=== PATIENT | male | born 1970 | race Caucasian/White ===

== ENCOUNTER 2022-05-19 13:21 | Inpatient (IN) | payer OTHER, SELFPAY ==
--- NOTE | ~2022-05-19 | CT_ITS ---
EXAMINATION: CT ANGIOGRAM OF THE CHEST WITH AND WITHOUT CONTRAST (CT PULMONARY ANGIOGRAM FOR PE) CLINICAL INFORMATION: Reason for Exam pain COMPARISON: None available. TECHNIQUE: Prior to contrast administration, noncontrast localization images were obtained. Subsequently, multidetector volumetric imaging was performed from the thoracic inlet to below the diaphragms following the administration of 80 mL Omnipaque 350 intravenous contrast. No contrast reaction reported Sagittal, coronal, and MIP oblique sagittal reformatted images were obtained on the CT workstation, uploaded to PACS, and reviewed. This CT examination was performed using dose optimization techniques as appropriate, variously including the following: *Automated exposure control *Adjustment of mA and/or kV according to patient size (this includes techniques or standardized protocols for targeted exams where dose is matched to indication/reason for exam; i.e. extremities or head) *Use of iterative reconstruction technique Total exam dose-length product 381 mGy-cm FINDINGS: QUALITY OF STUDY/CONTRAST BOLUS: Satisfactory. PULMONARY ARTERIES: No central or segmental pulmonary emboli. THORACIC AORTA: No aneurysm or dissection. LUNG: The lungs are well-expanded with bilateral superior and posterior segment platelike atelectasis. No acute consolidation. There is 3 and pulmonary nodule left upper lobe image 29/6. No additional appearing nodules visualized. PLEURA: There is no pleural effusion, pleural thickening or pneumothorax. MEDIASTINUM: Heart size is normal. There is no pericardial effusion. No hilar or mediastinal adenopathy seen. No evidence of septal bowing or right heart strain. CORONARY ARTERY CALCIFICATION: Mild coronary artery calcifications are present. CHEST WALL/AXILLA: There are small shotty bilateral axillary lymph nodes. The chest wall is unremarkable. OSSEOUS STRUCTURES: No acute or suspicious osseous abnormality. UPPER ABDOMEN: Visualized liver, spleen, pancreas and bilateral adrenal glands are unremarkable. No reflux of contrast into the hepatic veins to suggest elevated right heart pressures. CT/CT angio chest PE protocol IMPRESSION: 1. No evidence of PE. 2. No evidence of aortic dissection or aneurysm. 3. Bilateral lower lobe platelike atelectasis VTE: negative
--- NOTE | ~2022-05-19 | XR_ITS ---
EXAMINATION: XR CHEST CLINICAL INFORMATION: Chest pain COMPARISON: None available. TECHNIQUE: Portable upright AP x2 views of the chest was obtained. FINDINGS: There is no pneumothorax or pneumomediastinum or free air beneath the diaphragms. The heart is normal in size. The vascularity is normal. There is no pleural reaction or effusion. The costophrenic sulci are clear. There is no airspace consolidation or groundglass opacity. Fine linear scar is suggested right medial hemithorax. The hilar and mediastinal contours and visualized bony structures are unremarkable. XR/XR chest 1V IMPRESSION: Unremarkable examination.
--- NOTE | 2022-05-19 13:23 | ECG_ITS ---
Test Reason : Chest Pain Blood Pressure : / mmHG Vent. Rate : 067 BPM Atrial Rate : 067 BPM P-R Int : 174 ms QRS Dur : 100 ms QT Int : 388 ms P-R-T Axes : 063 032 029 degrees QTc Int : 409 ms Normal sinus rhythm Possible Left atrial enlargement Incomplete right bundle branch block Borderline ECG When compared with ECG of 19-MAY-2022 13:23, ST no longer elevated in Anterior leads T wave amplitude has decreased in Anterior leads Referred By: Drew Jerome Electronically Signed By:Roverto Cee
--- NOTE | 2022-05-19 13:30 | ED_ITS ---
HPI - Chest Pain General Chief Complaint: Chest Pain <JANNETTE Dove - Last Filed: 05/19/22 13:33> Stated Complaint: Chest tightness/L arm numbness <JANNETTE Dove - Last Filed: 05/19/22 13:33> Time Seen by Provider: 05/19/22 16:26 <JANNETTE Dove - Last Filed: 05/19/22 13:33> Source: patient and RN notes reviewed <Drew Jerome - Last Filed: 05/19/22 19:17> Mode of arrival: ambulatory <Drew Jerome - Last Filed: 05/19/22 19:17> Limitations: no limitations <Drew Jerome - Last Filed: 05/19/22 19:17> History of Present Illness HPI narrative: 51-year-old male past medical history significant for PE not currently anticoagulated presents for evaluation of chest pain. Patient reports that he had chest pain across his entire upper chest that start ed about 15 minutes after eating. This was approximately 3 hours ago. His pain radiated to both of his arms and under arms. He also complains of some tingling in both of his arms The patient also does endorse some pain between his shoulder blades that he feels is related Currently his pain is a 6/10 He denies any shortness of breath, cough, abdominal pain, nausea, vomiting He has reports a history of esophageal strictures Patient reports that his previous PE was over 2 years ago and was felt to be related to COVID. <Drew Jerome - Last Filed: 05/19/22 19:17> Related Data Home Medications: Home Medications Medication Instructions Recorded Confirmed No Known Home Meds 05/19/22 05/19/22 <JANNETTE Dove - Last Filed: 05/19/22 13:33> Allergies/Adverse Reactions: Allergies Allergy/AdvReac Type Severity Reaction Status Date / Time No Known Allergies Allergy Verified 05/19/22 13:31 <JANNETTE Dove - Last Filed: 05/19/22 13:33> Review of Systems Constitutional: Constitutional: Reports as per HPI, Denies chills, Denies fatigue, Denies fever(s) and Denies headache(s) <Drew Jerome - Last Filed: 05/19/22 19:17> ENT: Denies headache(s) <Drew Jerome - Last Filed: 05/19/22 19:17> Cardiovascular: Cardiovascular: Reports chest pain, Reports lightheadedness and Denies dyspnea <Drew Jerome - Last Filed: 05/19/22 19:17> Respiratory: Respiratory: Denies cough and Denies dyspnea <Drew Jerome - Last Filed: 05/19/22 19:17> Gastrointestinal: Gastrointestinal: Denies abdominal pain, Denies constipation and Denies vomiting <Drew Menesesy - Last Filed: 05/19/22 19:17> Genitourinary: Genitourinary: Denies difficulty urinating and Denies dysuria <Drew Jerome - Last Filed: 05/19/22 19:17> Neurologic: Denies headache(s) and Denies focal weakness <Drew Jerome - Last Filed: 05/19/22 19:17> Endocrine: Endocrine: Denies fatigue <Drew Jerome - Last Filed: 05/19/22 19:17> [facility] Social History Social History: Social History Alcohol intake: current Alcohol intake frequency: holidays/special occasions only Smoked in Last 30 Days: No Use of substances other than those prescribed or required for medical reasons: No Advance Directives: No Advance Directives Information Provided: Yes <JANNETTE Dove - Last Filed: 05/19/22 13:33> Physical Exam Vital Signs: Vital Signs: Last Vital Signs Temp 98.4 F 05/19/22 18:15 Pulse 76 05/19/22 18:15 Resp 20 05/19/22 18:15 BP 137/82 05/19/22 18:15 Pulse Ox 100 05/19/22 18:15 O2 Del Method 05/19/22 18:15 BMI result Body Mass Index 29.9 <JANNETTE Dove - Last Filed: 05/19/22 13:33> Vital Signs: Last Vital Signs Temp 98.4 F 05/19/22 18:15 Pulse 76 05/19/22 18:15 Resp 20 05/19/22 18:15 BP 137/82 05/19/22 18:15 Pulse Ox 100 05/19/22 18:15 O2 Del Method 05/19/22 18:15 BMI result Body Mass Index 29.9 < - Last Filed: 05/19/22 19:17> Const: General: healthy appearing, comfortable, no acute distress, alert and awake < Last Filed: 05/19/22 19:17> Nutritional Appearance: well nourished < - Last Filed: 05/19/22 19:17> Orientation/consciousness: patient oriented x3 < - Last Filed: 05/19/22 19:17> HEENT: Head: Yes normocephalic and Yes atraumatic < - Last Filed: 05/19/22 19:17> Throat: Yes posterior oropharynx normal < - Last Filed: 05/19/22 19:17> Eyes: Eyelids: Yes eyelids normal < - Last Filed: 05/19/22 19:17> Conjunctivae: conjunctivae normal < Last Filed: 05/19/22 19:17> Sclerae: sclerae normal < - Last Filed: 05/19/22 19:17> Corneas: corneas normal < - Last Filed: 05/19/22 19:17> Pupils: Equal, round and reactive pupils present < Last Fi led: 05/19/22 19:17> EOM: EOMs intact bilaterally < - Last Filed: 05/19/22 19:17> Neck: Neck: Yes full ROM < Last Filed: 05/19/22 19:17> Chest: Chest palpation & inspection: normal inspection of the chest < - Last Filed: 05/19/22 19:17> Resp: Effort & Inspection: normal respiratory effort, able to speak in complete sentences, no audible wheezes and not labored < - Last Filed: 05/19/22 19:17> Auscultation: clear to auscultation bilaterally < - Last Filed: 05/19/22 19:17> Cardio: Rate: regular rate <Drew O Last Filed: 05/19/22 19:17> Rhythm: regular rhythm <Drew O Last Filed: 05/19/22 19:17> Peripheral pulses: radial pulses present (2+ and equal) <Drew OReno - L ast Filed: 05/19/22 19:17> GI: Inspection: No distended <Drew O Last Filed: 05/19/22 19:17> Palpation (GI): Soft to palpation, not firm, nontender, no guarding and not rigid <Drew O - Last Filed: 05/19/22 19:17> Auscultation: normoactive bowel sounds <Drew O Last Filed: 05/19/22 19:17> Back/Spine/Pelvis: Thoracic/Lumbar Spine: thoracic and lumbar spine normal to inspection <Drew O Last Filed: 05/19/22 19:17> Skin: General skin exam: no rashes or lesions noted and elasticity normal <Drew O Last Filed: 05/19/22 19:17> Neuro: General: patient oriented x3 <Drew O Last Filed: 05/19/22 19:17> Cranial nerves: Yes CN's II-XII intact bilaterally, Yes Equal, round and reactive pupils present and Yes Bilaterally intact EOM present <Drew O - Last Filed: 05/19/22 19:17> Cognition (Neuro): normal cognition <Drew O Last Filed: 05/19/22 19:17> Extrem: Other: Moving all extremities well without any obvious deformities. No peripheral edema <Drew O Last Filed: 05/19/22 19:17> Course Course Course Narrative: RME--51yo M w/no sig PMHx c/o chest tightness and assoc bilateral UE tingling s/p eating lunch [employer]. Lungs CTA, nontoxic appearing EKG, Labs, CXR, COVID ordered <JANNETTE Dove - Last Filed: 05/19/22 13:33> Reevaluation(s) Reevaluation #1: Patient's initial troponin was 7.3 and does troponin was 52.1. The patient's chest pain resolved after receiving aspirin. I did repeat an EKG which shows subtle ST elevations or previously present in V2 through V4 are now resolved. I does show incomplete right bundle-branch block. CTA is still pending though I feel this is more likely a cardiac event. We will discuss with Cardiology <Drew Jerome - Last Filed: 05/19/22 19:17> Time: 18:19 <Drew Jerome - Last Filed: 05/19/22 19:17> Medications Administered Discontinued Medications Generic Name Dose Route Start Last Admin Trade Name Freq PRN Reason Stop Dose Admin Aspirin 325 mg 05/19/22 16:43 05/19/22 17:08 Aspirin 325 Mg Tablet PO 05/19/22 16:44 325 mg ONCE ONE Administration Iohexol 100 ml 05/19/22 17:51 05/19/22 17:51 Iohexol 350 Mg/Ml 100 Ml Infus..Btl IV 05/19/22 17:52 65 ml ONCE ONE Administration <JANNETTE Dove - Last Filed: 05/19/22 13:33> Medications Administered Discontinued Medications Generic Name Dose Route Start Last Admin Trade Name Freq PRN Reason Stop Dose Admin Aspirin 325 mg 05/19/22 16:43 05/19/22 17:08 Aspirin 325 Mg Tablet PO 05/19/22 16:44 325 mg ONCE ONE Administration Iohexol 100 ml 05/19/22 17:51 05/19/22 17:51 Iohexol 350 Mg/Ml 100 Ml Infus..Btl IV 05/19/22 17:52 65 ml ONCE ONE Administration <Drew Jerome - Last Filed: 05/19/22 19:17> Medical Decision Making Medical Decision Making MDM Narrative: 51-year-old male presenting for evaluation of chest pain and tingling both his arms that started about 50 minutes after eating lunch. He reports history of PE and is not currently anticoagulated. Was mildly hypertensive on arrival to 156/94. This improved to 1 without any intervention. Initial EKG is normal sinus without ischemia. Initial labs are unremarkable including tro ponin. We will get a a 3 hour delta troponin and a CTA of the chest to her for the of the patient's history. Patient medicated with aspirin this time. Have a lower suspicion for ACS see patient has no risk factors for this. His symptoms started after eating his EKG is nonischemic. Given his history of esophageal stricture, this is also in the differential. <Drew Jerome - Last Filed: 05/19/22 19:17> Differential Diagnosis Chest pain ACS PE Aortic dissection less likely Esophageal stricture GERD Peptic ulcer disease <Drew Jerome - Last Filed: 05/19/22 19:17> Lab Data MDM Lab Attestation statement: I reviewed the patient's lab results. <Drew Jerome - Last Filed: 05/04 08/26 19:17> No significant lab abnormalities <Drew Jerome - Last Filed: 05/19/22 19:17> Result Diagrams: 05/19/22 14:25 05/19/22 14:25 <JANNETTE Dove - Last Filed: 05/19/22 13:33> Labs: Lab Results 05/19/22 05/19/22 05/19/22 Range/Units 14:25 14:25 14:25 WBC 7.0 (4.8-10.8) X10*3/uL RBC 4.94 (4.60-5.80) X10*6/uL Hgb 15.8 (14.0-18.0) g/dl Hct 46.1 (42.0-52.0) % MCV 93.3 (80.0-98.0) fL MCH 32.0 (27.0-33.0) pg MCHC 34.3 (31.0-36.0) g/dl RDW 12.5 (11.0-16.0) % Plt Count 201 (160-400) X10*3/uL MPV 8.8 L (9.4-12.4) fL Immature Gran % (Auto) 0.3 (0.0-0.4) % Neut % (Auto) 64.7 (45-73) % Lymph % (Auto) 25.1 (20-40) % [place] % (Auto) 7.1 (2-11) % Eos % (Auto) 2.4 (0-4) % Baso % (Auto) 0.4 (0-2) % Lymph # (Auto) 1.8 (1.2-4.9) X10*3/uL [place] # (Auto) 0.5 (0.1-1.2) X10*3/uL Eos # (Auto) 0.2 (0.0-0.4) X10*3/uL Baso # (Auto) 0.0 (0.0-0.2) X10*3/uL Abs Immat Gran (auto) 0.02 (0.00-0.03) X10*3/uL Absolute Neuts (auto) 4.5 (2.0-8.3) x10*3/uL Absolute Nucleated RBC 0.000 (0.0-0.012) X10*3/uL Nucleated RBC % (auto) 0.0 (0.0-0.2) /100WBC PT 12.0 (10.0-13.1) SEC INR 1.0 (0.9-1.1) Sodium 137 (135-145) mmol/L Potassium 4.3 (3.3-5.1) mmol/L Chloride 102 (96-108) mmol/L Carbon Dioxide 29 (22-29) mmol/L Anion Gap 10 L (12-20) BUN 14 (9-16) mg/dL Creatinine 1.06 (0.5-1.4) mg/dL Estim Creat Clear Calc 107.4 Estimated GFR > 60 Random Glucose 190 H (60-115) mg/dL Calcium 8.8 (8.4-10.2) mg/dL Magnesium 2.0 (1.6-2.6) mg/dL Total Bilirubin 0.5 (0.0-1.0) mg/dL Direct Bilirubin < 0.2 (0.0-0.5) mg/dL AST 16 (5-37) U/L ALT 18 (0-40) U/L Alkaline Phosphatase 75 (39-117) U/L Troponin I High Sens (<3.5-35.0) ng/L Total Protein 6.4 L (6.5-8.0) g/dL Albumin 4.0 (3.5-5.0) g/dL COVID-19 (ONELIA) (Negative) COVID-19 Clin Com 05/19/22 05/19/22 05/19/22 Range/Units 14:25 14:25 17:14 WBC (4.8-10.8) X10*3/uL RBC (4.60-5.80) X10*6/uL Hgb (14.0-18.0) g/dl Hct (42.0-52.0) % MCV (80.0-98.0) fL MCH (27.0-33.0) pg MCHC (31.0-36.0) g/dl RDW (11.0-16.0) % Plt Count (160-400) X10*3/uL MPV (9.4-12.4) fL Immature Gran % (Auto) (0.0-0.4) % Neut % (Auto) (45-73) % Lymph % (Auto) (20-40) % [place] % (Auto) (2-11) % Eos % (Auto) (0-4) % Baso % (Auto) (0-2) % Lymph # (Auto) (1.2-4.9) X10*3/uL [place] # (Auto) (0.1-1.2) X10*3/uL Eos # (Auto) (0.0-0.4) X10*3/uL Baso # (Auto) (0.0-0.2) X10*3/uL Abs Immat Gran (auto) (0.00-0.03) X10*3/uL Absolute Neuts (auto) (2.0-8.3) x10*3/uL Absolute Nucleated RBC (0.0-0.012) X10*3/uL Nucleated RBC % (auto) (0.0-0.2) /100WBC PT (10.0-13.1) SEC INR (0.9-1.1) Sodium (135-145) mmol/L Potassium (3.3-5.1) mmol/L Chloride (96-108) mmol/L Carbon Dioxide (22-29) mmol/L Anion Gap (12-20) BUN (9-16) mg/dL Creatinine (0.5-1.4) mg/dL Estim Creat Clear Calc Estimated GFR Random Glucose (60-115) mg/dL Calcium (8.4-10.2) mg/dL Magnesium (1.6-2.6) mg/dL Total Bilirubin (0.0-1.0) mg/dL Direct Bilirubin (0.0-0.5) mg/dL AST (5-37) U/L ALT (0-40) U/L Alkaline Phosphatase (39-117) U/L Troponin I High Sens 7.3 52.1 H D (<3.5-35.0) ng/L Total Protein (6.5-8.0) g/dL Albumin (3.5-5.0) g/dL COVID-19 (ONELIA) Negative (Negative) COVID-19 Clin Com See Note <JANNETTE Dove - Last Filed: 05/19/22 13:33> Lab Results 05/19/22 05/19/22 05/19/22 Range/Units 14:25 14:25 14:25 WBC 7.0 (4.8-10.8) X10*3/uL RBC 4.94 (4.60-5.80) X10*6/uL Hgb 15.8 (14.0-18.0) g/dl Hct 46.1 (42.0-52.0) % MCV 93.3 (80.0-98.0) fL MCH 32.0 (27.0-33.0) pg MCHC 34.3 (31.0-36.0) g/dl RDW 12.5 (11.0-16.0) % Plt Count 201 (160-400) X10*3/uL MPV 8.8 L (9.4-12.4) fL Immature Gran % (Auto) 0.3 (0.0-0.4) % Neut % (Auto) 64.7 (45-73) % Lymph % (Auto) 25.1 (20-40) % [place] % (Auto) 7.1 (2-11) % Eos % (Auto) 2.4 (0-4) % Baso % (Auto) 0.4 (0-2) % Lymph # (Auto) 1.8 (1.2-4.9) X10*3/uL [place] # (Auto) 0.5 (0.1-1.2) X10*3/uL Eos # (Auto) 0.2 (0.0-0.4) X10*3/uL Baso # (Auto) 0.0 (0.0-0.2) X10*3/uL Abs Immat Gran (auto) 0.02 (0.00-0.03) X10*3/uL Absolute Neuts (auto) 4.5 (2.0-8.3) x10*3/uL Absolute Nucleated RBC 0.000 (0.0-0.012) X10*3/uL Nucleated RBC % (auto) 0.0 (0.0-0.2) /100WBC PT 12.0 (10.0-13.1) SEC INR 1.0 (0.9-1.1) Sodium 137 (135-145) mmol/L Potassium 4.3 (3.3-5.1) mmol/L Chloride 102 (96-108) mmol/L Carbon Dioxide 29 (22-29) mmol/L Anion Gap 10 L (12-20) BUN 14 (9-16) mg/dL Creatinine 1.06 (0.5-1.4) mg/dL Estim Creat Clear Calc 107.4 Estimated GFR > 60 Random Glucose 190 H (60-115) mg/dL Calcium 8.8 (8.4-10.2) mg/dL Magnesium 2.0 (1.6-2.6) mg/dL Total Bilirubin 0.5 (0.0-1.0) mg/dL Direct Bilirubin < 0.2 (0.0-0.5) mg/dL AST 16 (5-37) U/L ALT 18 (0-40) U/L Alkaline Phosphatase 75 (39-117) U/L Troponin I High Sens (<3.5-35.0) ng/L Total Protein 6.4 L (6.5-8.0) g/dL Albumin 4.0 (3.5-5.0) g/dL COVID-19 (ONELIA) (Negative) COVID-19 Clin Com 05/19/22 05/19/22 05/19/22 Range/Units 14:25 14:25 17:14 WBC (4.8-10.8) X10*3/uL RBC (4.60-5.80) X10*6/uL Hgb (14.0-18.0) g/dl Hct (42.0-52.0) % MCV (80.0-98.0) fL MCH (27.0-33.0) pg MCHC (31.0-36.0) g/dl RDW (11.0-16.0) % Plt Count (160-400) X10*3/uL MPV (9.4-12.4) fL Immature Gran % (Auto) (0.0-0.4) % Neut % (Auto) (45-73) % Lymph % (Auto) (20-40) % [place] % (Auto) (2-11) % Eos % (Auto) (0-4) % Baso % (Auto) (0-2) % Lymph # (Auto) (1.2-4.9) X10*3/uL [place] # (Auto) (0.1-1.2) X10*3/uL Eos # (Auto) (0.0-0.4) X10*3/uL Baso # (Auto) (0.0-0.2) X10*3/uL Abs Immat Gran (auto) (0.00-0.03) X10*3/uL Absolute Neuts (auto) (2.0-8.3) x10*3/uL Absolute Nucleated RBC (0.0-0.012) X10*3/uL Nucleated RBC % (auto) (0.0-0.2) /100WBC PT (10.0-13.1) SEC INR (0.9-1.1) Sodium (135-145) mmol/L Potassium (3.3-5.1) mmol/L Chloride (96-108) mmol/L Carbon Dioxide (22-29) mmol/L Anion Gap (12-20) BUN (9-16) mg/dL Creatinine (0.5-1.4) mg/dL Estim Creat Clear Calc Estimated GFR Random Glucose (60-115) mg/dL Calcium (8.4-10.2) mg/dL Magnesium (1.6-2.6) mg/dL Total Bilirubin (0.0-1.0) mg/dL Direct Bilirubin (0.0-0.5) mg/dL AST (5-37) U/L ALT (0-40) U/L Alkaline Phosphatase (39-117) U/L Troponin I High Sens 7.3 52.1 H D (<3.5-35.0) ng/L Total Protein (6.5-8.0) g/dL Albumin (3.5-5.0) g/dL COVID-19 (ONELIA) Negative (Negative) COVID-19 Clin Com See Note <Drew Jerome - Last Filed: 05/19/22 19:17> Independent Interpretation I performed an independent interpretation of an: EKG (Sinus rhythm with a rate of 60 beats per minute. Nonischemic EKG.) and Plain X-Ray (No acute intrathoracic pathology) <Drew Jerome - Last Filed: 05/19/22 19:17> Discharge Plan Discharge Clinical Impression: Chest pain <JANNETTE Dove - Last Filed: 05/19/22 13:33> Patient Disposition: Admitted As Inpatient <JANNETTE Dove - Last Filed: 05/19/22 13:33>
--- NOTE | 2022-05-19 13:31 | ECG_ITS ---
Test Reason : cp Blood Pressure : / mmHG Vent. Rate : 060 BPM Atrial Rate : 060 BPM P-R Int : 168 ms QRS Dur : 098 ms QT Int : 392 ms P-R-T Axes : 064 019 009 degrees QTc Int : 392 ms Normal sinus rhythm Prominent T waves - consider ischemia vs electrolyte imbalance. Abnormal ECG No previous ECGs available Referred By: Alma Puente Electronically Signed By:Roverto Cee
[2022-05-19 13:32] VITALS: BP 156/94; PULSE 62; RESP 19; TEMP 36.6; O2SAT 99; BMI 29.9
[2022-05-19 14:34] LABS: MANUAL DIFF FLAG NO
[2022-05-19 14:36] LABS: Basophils Percent Auto 0.4 % (0-2); Eosinophils Absolute Auto 0.2 X10*3/uL (0.0-0.4); Eosinophils Percent Auto 2.4 % (0-4); Hematocrit 46.1 % (42.0-52.0); Hemoglobin 15.8 g/dl (14.0-18.0); Imm Gran Abs Auto 0.02 X10*3/uL (0.00-0.03); Imm Gran Pct Auto 0.3 % (0.0-0.4); Lymphocytes Absolute Auto 1.8 X10*3/uL (1.2-4.9); Lymphocytes Percent Auto 25.1 % (20-40); Mean Corpuscular HGB Conc 34.3 g/dl (31.0-36.0); Mean Corpuscular Volume 93.3 fL (80.0-98.0); Mean Platelet Volume 8.8 fL (9.4-12.4); Monocytes Absolute Auto 0.5 X10*3/uL (0.1-1.2); Monocytes Percent Auto 7.1 % (2-11); Neutrophils Absolute Auto 4.5 x10*3/uL (2.0-8.3); Neutrophils Percent Auto 64.7 % (45-73); Platelet Count 201 X10*3/uL (160-400); Red Blood Count 4.94 X10*6/uL (4.60-5.80); Red Cell Distribution Width 12.5 % (11.0-16.0)
[2022-05-19 14:53] LABS: Alanine Aminotransferase 18 U/L (0-40); Alkaline Phosphatase 75 U/L (39-117); Anion Gap 10 (12-20); Aspartate Amino Transferase 16 U/L (5-37); Bilirubin Direct < 0.2 mg/dL (0.0-0.5); Bilirubin Total 0.5 mg/dL (0.0-1.0); Blood Urea Nitrogen 14 mg/dL (9-16); Calcium 8.8 mg/dL (8.4-10.2); Carbon Dioxide 29 mmol/L (22-29); Chloride 102 mmol/L (96-108); Creatinine Clr Calc Pharmacy 107.4; Estimated Glomerular Filt Rate > 60; Glucose Random 190 mg/dL (60-115); Potassium 4.3 mmol/L (3.3-5.1); Sodium 137 mmol/L (135-145); Total Protein 6.4 g/dL (6.5-8.0)
[2022-05-19 14:54] LABS: COVID-19 Test Negative (Negative); IDNOW Serial# 08D9AD1C
[2022-05-19 14:57] LABS: Troponin-I High Sensitivity 7.3 ng/L (<3.5-35.0)
[2022-05-19 15:49] VITALS: BP 130/78; PULSE 70; RESP 18; TEMP 36.8; O2SAT 99
[2022-05-19] MEDS: Aspirin 325 MG TABLET PO (17:08)
--- NOTE | 2022-05-19 17:22 | PC.NURSE ---
plan for cta, took po meds without issue. iv placed without issue, repeat trop sent.
[2022-05-19 17:42] LABS: Troponin-I High Sensitivity 52.1 ng/L (<3.5-35.0)
[2022-05-19] MEDS: iohexoL 350 MG/ML 100 ML INFUS..BTL IV (17:51)
[2022-05-19 18:15] VITALS: BP 137/82; PULSE 76; RESP 20; TEMP 36.9; O2SAT 100
--- NOTE | 2022-05-19 18:54 | PHA.MEDREC ---
Pharmacy Consult ? Medication Reconciliation Pharmacy has completed the medication reconciliation.
--- NOTE | 2022-05-19 19:20 | PM.IMHP ---
History of Present Illness Date of Service: 05/19/22 Chief Complaint: Chest Pain This is a 51-year-old male with no pertinent past medical history and not on prescription medications who presents to the emergency department for evaluation of chest discomfort. Patient states this afternoon, he had substernal chest discomfort with radiation to the both arms, constant and without any relieving factors. Does report chest discomfort which was worse with exertion that has been ongoing for the last 1 week but today it was constant. Had associated lightheadedness and tingling of both arms. No nausea, vomiting, sweating. No similar complaints in the past. Did have a history of PE due to COVID-19 infection but has been taken off of anticoagulation. No history of hypertension or diabetes. Patient denies fever, chills, palpitations, shortness of breath, abdominal pain, changes in urinary or bowel habits In the emergency department, troponin was found to be elevated and Cardiology was consulted who recommended admission and initiation of IV heparin Review of Systems Constitutional: Constitutional: Reports no additional constitutional complaints Cardiovascular: Cardiovascular: Reports chest pain Respiratory: Respiratory: Reports no additional respiratory complaints Gastrointestinal: Gastrointestinal: Reports no additional gastrointestinal complaints Genitourinary: Genitourinary: Reports no additional male genitourinary complaints [facility] Medical History Pulmonary emboli Pertinent family history: No family history of early CAD Social History Alcohol intake: current Alcohol intake frequency: holidays/special occasions only Smoked in Last 30 Days: No Use of substances other than those prescribed or required for medical reasons: No Advance Directives: No Advance Directives Information Provided: Yes Meds Allergies Allergy/AdvReac Type Severity Reaction Status Date / Time No Known Allergies Allergy Verified 05/19/22 13:31 Active Medications: Current Medications Heparin Sodium/Sodium Chloride (Heparin Sodium,Porcine/1/2ns) 25,000 unit in 250 mls @ 0 mls/hr IVCONT .Q0M MADHU; Protocol Pharmacy Consult (Consult Rx Perform Med Rec) 1 each MISCELLANE ONCE PRN PRN Reason: Consult order Pharmacy Consult (Consult Rx Perform Med Rec) 1 each MISCELLANE ONCE PRN PRN Reason: Consult order Home Medications Medication Instructions Recorded Confirmed Last Taken Type No Known Home Meds 03/16/23 03/16/23 Unknown History Physical Exam Vital Signs and Narrative: Vital Signs: Last Vital Signs Temp 98.4 F 05/19/22 18:15 Pulse 76 05/19/22 18:15 Resp 20 05/19/22 18:15 BP 137/82 05/19/22 18:15 Pulse Ox 100 05/19/22 18:15 O2 Del Method 05/19/22 18:15 BMI result Body Mass Index 29.9 Middle-aged male lying in bed in no distress Neck supple, no JVD Regular rate and rhythm, S1-S2 heard Regular breath sounds bilaterally, no wheezing or crackles appreciated Abdomen soft nontender, no guarding, no rigidity Patient is awake, alert and oriented to self, place, time and person ; no focal motor deficit Psych: Normal mood No pedal edema Results Labs 05/19/22 14:25 05/19/22 14:25 Labs: Laboratory Results - last 24 hr 05/19/22 05/19/22 05/19/22 14:25 14:25 14:25 MCV 93.3 MCH 32.0 MCHC 34.3 RDW 12.5 Plt Count 201 MPV 8.8 L Immature Gran % (Auto) 0.3 Neut % (Auto) 64.7 Lymph % (Auto) 25.1 [place] % (Auto) 7.1 Eos % (Auto) 2.4 Baso % (Auto) 0.4 Lymph # (Auto) 1.8 [place] # (Auto) 0.5 Eos # (Auto) 0.2 Baso # (Auto) 0.0 Abs Immat Gran (auto) 0.02 Absolute Neuts (auto) 4.5 Absolute Nucleated RBC 0.000 Nucleated RBC % (auto) 0.0 PT 12.0 INR 1.0 Anion Gap 10 L Estim Creat Clear Calc 107.4 Estimated GFR > 60 Random Glucose 190 H Calcium 8.8 Magnesium 2.0 Total Bilirubin 0.5 Direct Bilirubin < 0.2 AST 16 ALT 18 Alkaline Phosphatase 75 Troponin I High Sens Total Protein 6.4 L Albumin 4.0 COVID-19 (ONELIA) COVID-19 Clin Com 05/19/22 05/19/22 05/19/22 14:25 14:25 17:14 MCV MCH MCHC RDW Plt Count MPV Immature Gran % (Auto) Neut % (Auto) Lymph % (Auto) [place] % (Auto) Eos % (Auto) Baso % (Auto) Lymph # (Auto) [place] # (Auto) Eos # (Auto) Baso # (Auto) Abs Immat Gran (auto) Absolute Neuts (auto) Absolute Nucleated RBC Nucleated RBC % (auto) PT INR Anion Gap Estim Creat Clear Calc Estimated GFR Random Glucose Calcium Magnesium Total Bilirubin Direct Bilirubin AST ALT Alkaline Phosphatase Troponin I High Sens 7.3 52.1 H D Total Protein Albumin COVID-19 (ONELIA) Negative COVID-19 Clin Com See Note Imaging Radiologist's Impressions: Impressions Chest X-Ray 05/19/22 14:14 IMPRESSION: Unremarkable examination. Chest CTA 05/19/22 17:59 IMPRESSION: 1. No evidence of PE. 2. No evidence of aortic dissection or aneurysm. 3. Bilateral lower lobe platelike atelectasis VTE: negative Assessment and Plan (1) Chest pain: Status: Acute Plan This is a 51-year-old male with no pertinent past medical history and not on prescription medications who presents to the emergency department for evaluation of chest discomfort. #. NSTEMI: Patient given aspirin 325 mg and was initiated on IV heparin in the ER. Cardiology consulted from the ER, appreciate assistance. Also giving high-intensity statin and obtaining lipid panel. Obtaining echo #. Elevated blood glucose: Initiating Accu-Cheks with sliding scale insulin. Obtain A1c DVT prophylaxis: IV heparin Full code Cardiac diet. NPO after midnight Admit as inpatient and will require two night minimum hospital stay for IV heparin Time Spent With Patient Time: Total time managing care of this patient today ____ minutes. Quality Stroke Does the patient have a stroke diagnosis?: No VTE Prior VTE?: No VTE Risk Level:: Medical - moderate - high VTE Device Contraindication: Treatment Not Indicated VTE Drug Contraindication: N/A - Med Ordered
[2022-05-19 20:00] VITALS: BP 154/92; PULSE 62; RESP 20; TEMP 36.9; O2SAT 96
[2022-05-19 20:30] LABS: Cholesterol 214 mg/dL; HDL Cholesterol 44 mg/dL; LDL Cholesterol Calculated 158 mg/dl; Triglycerides 62 mg/dL
[2022-05-19] MEDS: Heparin Sodium,Porcine/1/2NS 25,000 UNIT/250 ML IV.SOLN 15.68 UNIT IVCONT (20:47)
[2022-05-19] MEDS: Heparin Sodium,Porcine 5,000 UNIT/ML VIAL 4000 UNIT IVPUSH (20:47)
[2022-05-19] MEDS: Atorvastatin Calcium 40 MG TABLET PO (20:50)
--- NOTE | 2022-05-19 21:03 | PC.NURSE ---
this rn medicated pt according to mar. initial ptt not performed. pt received bolus heparin 4000 units, per pharmacy pt okay to start heparin gtt with pt. heparin gtt started with second rn at bedside to cosign. repeat ptt ordered to be drawn @ 0248 per protocol.
[2022-05-19 21:22] LABS: Glucose, Whole Blood 99 mg/dL (60-115)
[2022-05-20] VITALS: BP 137/85; PULSE 62; RESP 18; TEMP 36.9; O2SAT 98
--- NOTE | 2022-05-20 | ECG_ITS ---
Test Reason : NSTEMI Blood Pressure : / mmHG Vent. Rate : 076 BPM Atrial Rate : 076 BPM P-R Int : 192 ms QRS Dur : 096 ms QT Int : 374 ms P-R-T Axes : 050 -05 037 degrees QTc Int : 420 ms Normal sinus rhythm Septal infarct , age undetermined Abnormal ECG When compared with ECG of 19-MAY-2022 17:55, Incomplete right bundle branch block is no longer Present Septal infarct is now Present Referred By: Dmitriy Espitia Electronically Signed By:Roverto Cee
[2022-05-20 02:59] LABS: Basophils Percent Auto 0.3 % (0-2); Eosinophils Absolute Auto 0.2 X10*3/uL (0.0-0.4); Eosinophils Percent Auto 1.8 % (0-4); Hematocrit 46.1 % (42.0-52.0); Hemoglobin 15.8 g/dl (14.0-18.0); Imm Gran Abs Auto 0.04 X10*3/uL (0.00-0.03); Imm Gran Pct Auto 0.4 % (0.0-0.4); Lymphocytes Absolute Auto 2.7 X10*3/uL (1.2-4.9); Lymphocytes Percent Auto 25.3 % (20-40); MANUAL DIFF FLAG NO; Mean Corpuscular HGB Conc 34.3 g/dl (31.0-36.0); Mean Corpuscular Volume 90.4 fL (80.0-98.0); Mean Platelet Volume 8.5 fL (9.4-12.4); Monocytes Absolute Auto 0.9 X10*3/uL (0.1-1.2); Neutrophils Absolute Auto 6.9 x10*3/uL (2.0-8.3); Neutrophils Percent Auto 64.2 % (45-73); Platelet Count 191 X10*3/uL (160-400); Red Cell Distribution Width 12.4 % (11.0-16.0); White Blood Count 10.7 X10*3/uL (4.8-10.8)
[2022-05-20 03:22] LABS: Anion Gap 12 (12-20); Blood Urea Nitrogen 10 mg/dL (9-16); Calcium 8.9 mg/dL (8.4-10.2); Carbon Dioxide 25 mmol/L (22-29); Chloride 106 mmol/L (96-108); Creatinine Clr Calc Pharmacy 125.4; Estimated Glomerular Filt Rate > 60; Glucose Random 107 mg/dL (60-115); Sodium 139 mmol/L (135-145)
[2022-05-20 03:29] LABS: PTT Heparin Drip 116.4 SEC (53-77.9)
[2022-05-20 03:32] VITALS: BP 133/76; PULSE 63; RESP 20; TEMP 36.8; O2SAT 98
[2022-05-20 04:53] LABS: PTT Heparin Drip 53.2 SEC (53-77.9)
[2022-05-20 05:07] LABS: Troponin-I High Sensitivity > 3600.0 ng/L (<3.5-35.0)
[2022-05-20 07:09] LABS: Estimated Average Glucose 103 mg/dL; Hemoglobin A1c % 5.2 %
[2022-05-20 07:17] LABS: Glucose, Whole Blood 98 mg/dL (60-115)
--- NOTE | 2022-05-20 07:45 | PM.CNCAR ---
History of Present Illness History of Present Illness Date of Service: 05/20/22 Requesting physician: Dmitriy Espitia Chief complaint: NSTEMI Narrative: pleasant 51-year-old gentleman was visiting from [place] and developed chest discomfort yesterday afternoon. He said he has been experiencing some pressure-like feeling in his chest over the last couple of weeks. This would happen when he would exert himself. Yesterday he remained discomfort past and bilateral shoulder discomfort. This lasted approximately 1-1/2 hour and he had some atypical dull aching chest since then. He is saying currently is feeling better. He is initial EKG showed hyperacute appearing T-waves in for a 2nd EKG there is no bleeding issues in the past. No known history in the past with any other risk factors. [facility] Past Medical History Medical History (Updated 05/20/22 @ 07:46 by Dmitriy Espitia MD) Pulmonary emboli Social History Social History Household Members: Spouse Housing: House Do you presently have visiting nurse or other home services: No Alcohol intake: current Alcohol intake frequency: holidays/special occasions only Patient Tobacco Use Status: Never used Tobacco Meds Allergies Allergy/AdvReac Type Severity Reaction Status Date / Time No Known Allergies Allergy Verified 05/19/22 13:31 Active Medications: Current Medications Acetaminophen (Acetaminophen 325 Mg Tablet) 650 mg PO Q6H PRN PRN Reason: Pain, Mild (Pain Scale 1-3) Glucose (Glucose Gel 15 Gm Gel..Gram.) 15 gm PO Q15M PRN; Protocol PRN Reason: per Hypoglycemia Standing Ord. Heparin Sodium (Porcine) (Heparin Sodium,Porcine 5,000 Unit/Ml Vial) 4,500 unit 40 unit/kg (4500 unit) IVPUSH PROTOCOL BOLUS PRN; Protocol PRN Reason: 40 unit/kg - Heparin Protocol Heparin Sodium (Porcine) (Heparin Sodium,Porcine 5,000 Unit/Ml Vial) 9,000 unit 80 unit/kg (9000 unit) IVPUSH PROTOCOL BOLUS PRN; Protocol PRN Reason: 80 unit/kg - Heparin Protocol Dextrose (D10) 250 mls @ 750 mls/hr IV Q15M PRN; Protocol PRN Reason: per Hypoglycemia Standing Ord. Heparin Sodium/Sodium Chloride (Heparin Sodium,Porcine/1/2ns) 25,000 unit in 250 mls @ 0 mls/hr IVCONT .Q0M [facility]; Protocol Last Titration: 05/20/22 06:07 Dose: 10 units/kg/hr, 11.2 mls/hr Insulin Human Lispro (Insulin Lispro 100 Unit/Ml 3 Ml Vial) 0 unit SUBCUT QIDACHS [facility]; Protocol Last Admin: 05/19/22 22:18 Dose: Not Given Melatonin (Melatonin 3 Mg Tablet) 6 mg PO BEDTIME PRN PRN Reason: Insomnia Nitroglycerin (Nitroglycerin 0.4 Mg Tab.Subl) 0.4 mg SUBLINGUAL Q5MX3 PRN PRN Reason: Chest Pain Ondansetron HCl (Ondansetron Hcl 4 Mg/2 Ml Vial) 4 mg IVPUSH Q8H PRN PRN Reason: Nausea and Vomiting Pharmacy Consult (Consult Rx Perform Med Rec) 1 each MISCELLANE ONCE PRN PRN Reason: Consult order Pharmacy Consult (Consult Rx Perform Med Rec) 1 each MISCELLANE ONCE PRN PRN Reason: Consult order Sodium Chloride (0.9 % Sodium Chloride Flush 3 Ml Syringe) 3 ml IVFLUSH QSHIFT [facility] Last Admin: 05/20/22 00:11 Dose: Not Given Physical Exam Vital Signs: Vital Signs: Last Vital Signs Temp 98.3 F 05/20/22 03:32 Pulse 63 05/20/22 03:32 Resp 20 05/20/22 03:32 BP 133/76 05/20/22 03:32 Pulse Ox 98 05/20/22 03:32 O2 Del Method 05/20/22 03:32 BMI result Body Mass Index 29.9 GENERAL APPEARANCE: in no acute distress, pleasant. NECK: no carotid bruit, no jugular venous distention. SKIN: no suspicious lesions, warm and dry. HEART: no murmurs, regular rate and rhythm. LUNGS: clear to auscultation bilaterally. ABDOMEN: soft, nontender. EXTREMITIES: no edema. PERIPHERAL PULSES: equal. NEUROLOGIC: No gross deficits, AAO X 3 Objective Labs and Meds 05/20/22 02:53 05/20/22 02:53 Lab results: Laboratory Results - last 24 hr 05/19/22 05/19/22 05/19/22 14:25 14:25 14:25 WBC 7.0 RBC 4.94 Hgb 15.8 Hct 46.1 MCV 93.3 MCH 32.0 MCHC 34.3 RDW 12.5 Plt Count 201 MPV 8.8 L Immature Gran % (Auto) 0.3 Neut % (Auto) 64.7 Lymph % (Auto) 25.1 [place] % (Auto) 7.1 Eos % (Auto) 2.4 Baso % (Auto) 0.4 Lymph # (Auto) 1.8 [place] # (Auto) 0.5 Eos # (Auto) 0.2 Baso # (Auto) 0.0 Abs Immat Gran (auto) 0.02 Absolute Neuts (auto) 4.5 Absolute Nucleated RBC 0.000 Nucleated RBC % (auto) 0.0 PT 12.0 INR 1.0 aPTT Heparin Protocol Sodium 137 Potassium 4.3 Chloride 102 Carbon Dioxide 29 Anion Gap 10 L BUN 14 Creatinine 1.06 Estim Creat Clear Calc 107.4 Estimated GFR > 60 POC Glucose Random Glucose 190 H Estimat Average Glucose Hemoglobin A1c % Calcium 8.8 Magnesium 2.0 Total Bilirubin 0.5 Direct Bilirubin < 0.2 AST 16 ALT 18 Alkaline Phosphatase 75 Troponin I High Sens Total Protein 6.4 L Albumin 4.0 Triglycerides Cholesterol LDL Cholesterol, Calc HDL Cholesterol COVID-19 (ONELIA) COVID-Somewhere 05/19/22 05/19/22 05/19/22 14:25 14:25 17:14 WBC RBC Hgb Hct MCV MCH MCHC RDW Plt Count MPV Immature Gran % (Auto) Neut % (Auto) Lymph % (Auto) [place] % (Auto) Eos % (Auto) Baso % (Auto) Lymph # (Auto) [place] # (Auto) Eos # (Auto) Baso # (Auto) Abs Immat Gran (auto) Absolute Neuts (auto) Absolute Nucleated RBC Nucleated RBC % (auto) PT INR aPTT Heparin Protocol Sodium Potassium Chloride Carbon Dioxide Anion Gap BUN Creatinine Estim Creat Clear Calc Estimated GFR POC Glucose Random Glucose Estimat Average Glucose Hemoglobin A1c % Calcium Magnesium Total Bilirubin Direct Bilirubin AST ALT Alkaline Phosphatase Troponin I High Sens 7.3 52.1 H D Total Protein Albumin Triglycerides Cholesterol LDL Cholesterol, Calc HDL Cholesterol COVID-19 (ONELIA) Negative COVID-19 [employer] Com See Note 05/19/22 05/19/22 05/19/22 20:05 20:05 21:17 WBC RBC Hgb Hct MCV MCH MCHC RDW Plt Count MPV Immature Gran % (Auto) Neut % (Auto) Lymph % (Auto) [place] % (Auto) Eos % (Auto) Baso % (Auto) Lymph # (Auto) [place] # (Auto) Eos # (Auto) Baso # (Auto) Abs Immat Gran (auto) Absolute Neuts (auto) Absolute Nucleated RBC Nucleated RBC % (auto) PT INR aPTT Heparin Protocol Sodium Potassium Chloride Carbon Dioxide Anion Gap BUN Creatinine Estim Creat Clear Calc Estimated GFR POC Glucose 99 Random Glucose Estimat Average Glucose 103 Hemoglobin A1c % 5.2 Calcium Magnesium Total Bilirubin Direct Bilirubin AST ALT Alkaline Phosphatase Troponin I High Sens Total Protein Albumin Triglycerides 62 Cholesterol 214 LDL Cholesterol, Calc 158 HDL Cholesterol 44 COVID-19 (ONELIA) COVID-19 Clin Com 05/20/22 05/20/22 05/20/22 02:53 02:53 02:53 WBC 10.7 RBC 5.10 Hgb 15.8 Hct 46.1 MCV 90.4 MCH 31.0 MCHC 34.3 RDW 12.4 Plt Count 191 MPV 8.5 L Immature Gran % (Auto) 0.4 Neut % (Auto) 64.2 Lymph % (Auto) 25.3 [place] % (Auto) 8.0 Eos % (Auto) 1.8 Baso % (Auto) 0.3 Lymph # (Auto) 2.7 [place] # (Auto) 0.9 Eos # (Auto) 0.2 Baso # (Auto) 0.0 Abs Immat Gran (auto) 0.04 H Absolute Neuts (auto) 6.9 Absolute Nucleated RBC 0.000 Nucleated RBC % (auto) 0.0 PT INR aPTT Heparin Protocol 116.4 H* Sodium 139 Potassium 4.0 Chloride 106 Carbon Dioxide 25 Anion Gap 12 BUN 10 Creatinine 0.92 Estim Creat Clear Calc 125.4 Estimated GFR > 60 POC Glucose Random Glucose 107 Estimat Average Glucose Hemoglobin A1c % Calcium 8.9 Magnesium Total Bilirubin Direct Bilirubin AST ALT Alkaline Phosphatase Troponin I High Sens Total Protein Albumin Triglycerides Cholesterol LDL Cholesterol, Calc HDL Cholesterol COVID-19 (ONELIA) COVID-19 Clin Com 05/20/22 05/20/22 05/20/22 04:38 04:38 07:13 WBC RBC Hgb Hct MCV MCH MCHC RDW Plt Count MPV Immature Gran % (Auto) Neut % (Auto) Lymph % (Auto) [place] % (Auto) Eos % (Auto) Baso % (Auto) Lymph # (Auto) [place] # (Auto) Eos # (Auto) Baso # (Auto) Abs Immat Gran (auto) Absolute Neuts (auto) Absolute Nucleated RBC Nucleated RBC % (auto) PT INR aPTT Heparin Protocol 53.2 D Sodium Potassium Chloride Carbon Dioxide Anion Gap BUN Creatinine Estim Creat Clear Calc Estimated GFR POC Glucose 98 Random Glucose Estimat Average Glucose Hemoglobin A1c % Calcium Magnesium Total Bilirubin Direct Bilirubin AST ALT Alkaline Phosphatase Troponin I High Sens > 3600.0 H* D Total Protein Albumin Triglycerides Cholesterol LDL Cholesterol, Calc HDL Cholesterol COVID-19 (ONELIA) COVID-19 Clin Com Imaging Radiologist's impression: Impressions Chest X-Ray 05/19/22 14:14 IMPRESSION: Unremarkable examination. Chest CTA 05/19/22 17:59 IMPRESSION: 1. No evidence of PE. 2. No evidence of aortic dissection or aneurysm. 3. Bilateral lower lobe platelike atelectasis VTE: negative Assessment and Plan (1) NSTEMI (non-ST elevated myocardial infarction): Status: Acute Plan pleasant 51 year gentleman presenting with chest discomfort. He ruled in for NSTEMI. Currently pain free. He had hyperacute T-waves on the EKG. On aspirin currently. Continue the heparin drip. Adding metoprolol 25 mg twice a day. Atorvastatin 80 mg once a day. I discussed with him in detail about cardiac catheterization and is agreeable. With her transferred to [facility] for cardiac catheterization. keep NPO going forward. Time Spent With Patient Time: Total time managing care of this patient today ____ minutes. Procedures Date of Service Date of Service: 05/20/22
--- NOTE | 2022-05-20 07:52 | P.DS_ITS ---
DS: Providers Provider Date of Service: 05/20/22 Date of admission: 05/19/22 19:19 Primary care physician: Unknown Physician Consults: 05/19/22 19:21 Consult to Cardiology Routine Consulting Provider: [facility] Cardiovascular Services Reason for consultation: NSTEMI Has provider been notified: Yes DS: Diagnosis Discharge Diagnosis (1) Chest pain: Status: Deleted DS: Summary Hospital Course Hospital Course: from initial hpi: Chief Complaint: Chest Pain This is a 51-year-old male with no pertinent past medical history and not on prescription medications who presents to the emergency department for evaluation of chest discomfort.? Patient states this afternoon, he had substernal chest discomfort with radiation to the both arms, constant and without any relieving factors.? Does report chest discomfort which was worse with exertion that has been ongoing for the last 1 week but today it was constant.? Had associated lightheadedness and tingling of both arms.? No nausea, vomiting, sweating.? No similar complaints in the past.? Did have a history of PE due to COVID-19 infection but has been taken off of anticoagulation.? No history of hypertension or diabetes.? Patient denies fever, chills, palpitations, shortness of breath, abdominal pain, changes in urinary or bowel habits In the emergency department, troponin was found to be elevated and Cardiology was consulted who recommended admission and initiation of IV heparin hospital course: Patient was admitted for NSTEMI. Was started on IV heparin, given aspirin, statin, beta-rob. He was seen by Cardiology recommended transfer to [facility] for urgent cardiac catheterization. For hyperglycemia A1c was checked which was 5.2 not consistent with diabetes. CTA was negative for PE. Time Spent with Patient Time attestation: Total time managing care of this patient today ____ minutes. Discharge coordination time: Greater than 30 minutes Quality: Safe Use of Opioids Does Pt have an Active Cancer Diagnosis on the Problem List?: No Quality: Stroke Does the patient have a stroke diagnosis?: No Physical Exam Vital Signs: Vital Signs: Last Vital Signs Temp 98.3 F 05/20/22 03:32 Pulse 63 05/20/22 03:32 Resp 20 05/20/22 03:32 BP 133/76 05/20/22 03:32 Pulse Ox 98 05/20/22 03:32 O2 Del Method 05/20/22 03:32 BMI result Body Mass Index 29.9 General: AO X 3, no acute distress Resp: CTA bilateral, no accessory muscles used CVS: S1,S2,RRR GI: soft, non tender, non distended Neuro: motor grossly intact, alert Psych: appropriate affect, appropriate insight DS: Data Data Completed and Pending Labs on day of discharge: Laboratory Results - last 24 hr 05/19/22 05/19/22 05/19/22 14:25 14:25 14:25 WBC 7.0 RBC 4.94 Hgb 15.8 Hct 46.1 MCV 93.3 MCH 32.0 MCHC 34.3 RDW 12.5 Plt Count 201 MPV 8.8 L Immature Gran % (Auto) 0.3 Neut % (Auto) 64.7 Lymph % (Auto) 25.1 [place] % (Auto) 7.1 Eos % (Auto) 2.4 Baso % (Auto) 0.4 Lymph # (Auto) 1.8 [place] # (Auto) 0.5 Eos # (Auto) 0.2 Baso # (Auto) 0.0 Abs Immat Gran (auto) 0.02 Absolute Neuts (auto) 4.5 Absolute Nucleated RBC 0.000 Nucleated RBC % (auto) 0.0 PT 12.0 INR 1.0 aPTT Heparin Protocol Sodium 137 Potassium 4.3 Chloride 102 Carbon Dioxide 29 Anion Gap 10 L BUN 14 Creatinine 1.06 Estim Creat Clear Calc 107.4 Estimated GFR > 60 POC Glucose Random Glucose 190 H Estimat Average Glucose Hemoglobin A1c % Calcium 8.8 Magnesium 2.0 Total Bilirubin 0.5 Direct Bilirubin < 0.2 AST 16 ALT 18 Alkaline Phosphatase 75 Troponin I High Sens Total Protein 6.4 L Albumin 4.0 Triglycerides Cholesterol LDL Cholesterol, Calc HDL Cholesterol COVID-19 (ONELIA) COVID-19 Clin Com 05/19/22 05/19/22 05/19/22 14:25 14:25 17:14 WBC RBC Hgb Hct MCV MCH MCHC RDW Plt Count MPV Immature Gran % (Auto) Neut % (Auto) Lymph % (Auto) [place] % (Auto) Eos % (Auto) Baso % (Auto) Lymph # (Auto) [place] # (Auto) Eos # (Auto) Baso # (Auto) Abs Immat Gran (auto) Absolute Neuts (auto) Absolute Nucleated RBC Nucleated RBC % (auto) PT INR aPTT Heparin Protocol Sodium Potassium Chloride Carbon Dioxide Anion Gap BUN Creatinine Estim Creat Clear Calc Estimated GFR POC Glucose Random Glucose Estimat Average Glucose Hemoglobin A1c % Calcium Magnesium Total Bilirubin Direct Bilirubin AST ALT Alkaline Phosphatase Troponin I High Sens 7.3 52.1 H D Total Protein Albumin Triglycerides Cholesterol LDL Cholesterol, Calc HDL Cholesterol COVID-19 (ONELIA) Negative COVID-19 Clin Com See Note 05/19/22 05/19/22 05/19/22 20:05 20:05 21:17 WBC RBC Hgb Hct MCV MCH MCHC RDW Plt Count MPV Immature Gran % (Auto) Neut % (Auto) Lymph % (Auto) [place] % (Auto) Eos % (Auto) Baso % (Auto) Lymph # (Auto) [place] # (Auto) Eos # (Auto) Baso # (Auto) Abs Immat Gran (auto) Absolute Neuts (auto) Absolute Nucleated RBC Nucleated RBC % (auto) PT INR aPTT Heparin Protocol Sodium Potassium Chloride Carbon Dioxide Anion Gap BUN Creatinine Estim Creat Clear Calc Estimated GFR POC Glucose 99 Random Glucose Estimat Average Glucose 103 Hemoglobin A1c % 5.2 Calcium Magnesium Total Bilirubin Direct Bilirubin AST ALT Alkaline Phosphatase Troponin I High Sens Total Protein Albumin Triglycerides 62 Cholesterol 214 LDL Cholesterol, Calc 158 HDL Cholesterol 44 COVID-19 (ONELIA) COVID-19 Clin Com 05/20/22 05/20/22 05/20/22 02:53 02:53 02:53 WBC 10.7 RBC 5.10 Hgb 15.8 Hct 46.1 MCV 90.4 MCH 31.0 MCHC 34.3 RDW 12.4 Plt Count 191 MPV 8.5 L Immature Gran % (Auto) 0.4 Neut % (Auto) 64.2 Lymph % (Auto) 25.3 [place] % (Auto) 8.0 Eos % (Auto) 1.8 Baso % (Auto) 0.3 Lymph # (Auto) 2.7 [place] # (Auto) 0.9 Eos # (Auto) 0.2 Baso # (Auto) 0.0 Abs Immat Gran (auto) 0.04 H Absolute Neuts (auto) 6.9 Absolute Nucleated RBC 0.000 Nucleated RBC % (auto) 0.0 PT INR aPTT Heparin Protocol 116.4 H* Sodium 139 Potassium 4.0 Chloride 106 Carbon Dioxide 25 Anion Gap 12 BUN 10 Creatinine 0.92 Estim Creat Clear Calc 125.4 Estimated GFR > 60 POC Glucose Random Glucose 107 Estimat Average Glucose Hemoglobin A1c % Calcium 8.9 Magnesium Total Bilirubin Direct Bilirubin AST ALT Alkaline Phosphatase Troponin I High Sens Total Protein Albumin Triglycerides Cholesterol LDL Cholesterol, Calc HDL Cholesterol COVID-19 (ONELIA) [employer]19 [employer] 05/20/22 05/20/22 05/20/22 04:38 04:38 07:13 WBC RBC Hgb Hct MCV MCH MCHC RDW Plt Count MPV Immature Gran % (Auto) Neut % (Auto) Lymph % (Auto) [place] % (Auto) Eos % (Auto) Baso % (Auto) Lymph # (Auto) [place] # (Auto) Eos # (Auto) Baso # (Auto) Abs Immat Gran (auto) Absolute Neuts (auto) Absolute Nucleated RBC Nucleated RBC % (auto) PT INR aPTT Heparin Protocol 53.2 D Sodium Potassium Chloride Carbon Dioxide Anion Gap BUN Creatinine Estim Creat Clear Calc Estimated GFR POC Glucose 98 Random Glucose Estimat Average Glucose Hemoglobin A1c % Calcium Magnesium Total Bilirubin Direct Bilirubin AST ALT Alkaline Phosphatase Troponin I High Sens > 3600.0 H* D Total Protein Albumin Triglycerides Cholesterol LDL Cholesterol, Calc HDL Cholesterol COVID-19 (ONELIA) COVID-19 [employer] Discharge Plan Discharge Anticipated Discharge Date/Time: 05/20/22 07:46 Patient Disposition: Home, Self-Care Discharge Diagnosis: nstemi Referrals: Physician,Unknown J [Primary Care Provider] - 1 Week Discharge Medications: New atorvastatin 80 mg Tablet 80 mg PO BEDTIME Qty: 0 0RF aspirin 81 mg Tablet,Chewable 81 mg PO DAILY Qty: 0 0RF metoprolol tartrate 25 mg Tablet 25 mg PO BID Qty: 0 0RF Protocol: Hold for SBP/HR < HOLD for SBP < : 90 HOLD for HR < : 60 heparin(porcine) in 0.45% NaCl 25,000 unit/250 mL Parenteral Solution 25,000 unit continuous IV infusion .Q0M Qty: 0 0RF Discharge Orders: Discharge Order (Routine); Ordered 05/20/22 Ordered By: Dmitriy Espitia Diet: Advance to usual diet Activity on Discharge: As tolerated Stand Alone Forms: Patient Portal Discharge page Care Plan Goals: manage nstemi Health Concerns: nstemi Plan of Treatment: transfer to [facility] Assessment: see above
[2022-05-20 07:55] VITALS: BP 140/84; PULSE 77; RESP 17; TEMP 37; O2SAT 95
--- NOTE | 2022-05-20 08:00 | MHC.CM.PN ---
Patient has been medically cleared for dc to home today, self care.
[2022-05-20] MEDS: 0.9 % Sodium Chloride Flush 3 ML SYRINGE IVFLUSH (08:07)
[2022-05-20] MEDS: Metoprolol Tartrate 25 MG TABLET PO (08:07)
[2022-05-20] MEDS: Aspirin 81 MG TAB.CHEW PO (08:07)
--- NOTE | 2022-05-20 09:27 | PC.NURSE ---
Pt alert and oriented x4. C/O 1/10 chest pain. Pt is on RA, clear LS and on Heparin drip running at 10units/kg/hr. Aptt this am at 0400 was 3600. Pt is independent OOB. Pt will be transferred to [facility] this am at 11a. Report called and given to MELISSA Ayon at [facility].
--- NOTE | 2022-05-20 11:50 | MHC.CM.PN ---
Per ROUNDS discussion, Patient was dc/transferred to [facility], not dc to home self care.
== END 2022-05-20 10:00 | disposition short-term general hospital (02) | DRG 282 ==
LOC: HO.ED 18:25 → HO.EDOVER 19:26 → HO.IMC 19:35
PROVIDERS: Physician Assistant; Admitting Provider Student in an Organized Health Care Education/Training Program; Emergency Provider Emergency Medicine; Visit Provider Internal Medicine
DX: I21.4 Non-ST elevation (NSTEMI) myocardial infarction (principal); Z20.822 Contact with and (suspected) exposure to COVID-19; Z86.711 Personal history of pulmonary embolism; Z86.16 Personal history of COVID-19; Z79.899 Other long term (current) drug therapy
CPT/HCPCS: 36415; 71045; 71275; 80048; 80061; 80076; 82947; 83036; 83735; 84484; 85025; 85610; 85730; 87635; 93005; 99285; J1643; Q9967